=== PATIENT | male | born 1965 | race Caucasian/White ===

== ENCOUNTER → 2018-11-23 | Outpatient (CLI) | payer MEDICARE, OTHER ==
[~2018-11-23] MED LIST: 1ST TIER UNILE1 EAC1 MC; ADVOCATE SYRIN1 EAC1 MC; AMARYL2 MG PO; AUGMENTIN 875-1 EACH PO; FUROSEMIDE 20 M20 M1; GLUCOMETER; HUMALOG100 UNIT/2; HUMULIN N100 UNIT/1 SUBQ; HUMULINR100 SUBQ; LACTULOSE20 GM/30 M PO; LANTUS100 UNIT/M; LIPITOR 10 MG10 M1 PO; LISINOPRIL10 MG PO; LOMOTIL 2.5-0.01 TAB PO; NEURONTIN 300300 M1 PO; TEST STRIPS1 EACH MC; VITAMIN D 5050000 I1 PO; ZANTAC 150MG T150 MG
== END ==
LOC: M.ULTRA 08:12
DX: K74.60 Unspecified cirrhosis of liver (principal); R16.2 Hepatomegaly with splenomegaly, not elsewhere classified; Z86.19 Personal history of other infectious and parasitic diseases

== ENCOUNTER 2018-12-17 11:38 | Emergency (ER) | payer OTHER, MEDICAID ==
[~2018-12-17] VITALS: Ht 188 cm; Wt 142.9 kg
[~2018-12-17 11:38] MED LIST changes: -AMARYL2 MG PO; +AMARYL4 MG PO; -FUROSEMIDE 20 M20 M1; +FUROSEMIDE 40 M40 M1 PO; -NEURONTIN 300300 M1 PO; +NEURONTIN600 MG PO
[2018-12-17] MEDS ORDERED: BENTYL 10 MG CA10 M1 PO (11:48)
[2018-12-17] MEDS ORDERED: FIBER500 MG PO (11:48)
[2018-12-17 12:35] LABS: HEMATOCRIT 38.2 % (42.0-52.0); HEMOGLOBIN 12.7 gm/dL (14.0-18.0); MCH 27.2 pg (26.0-34.0); MCHC 33.2 g/dL (28.0-37.0); MCV 81.9 fL (80.0-100.0); MPV 8.3 fl. (7.2-11.1); NUCLEATED RBCS 0 /100WBC; PLATELET COUNT* 117 thou/uL (150-400); RBC 4.66 mil/uL (4.50-6.00); RDW-CV 15.5 % (10.5-14.5); WBC 9.2 thou/uL (4.0-11.0)
[2018-12-17 12:56] LABS: ABSOLUTE BASOPHILS 0.2 thou/uL (0.0-0.2); ABSOLUTE EOSINOPHILS 0.5 thou/uL (0.0-0.7); ABSOLUTE LYMPHOCYTES 1.3 thou/uL (0.8-5.3); ABSOLUTE MONOCYTES 0.6 thou/uL (0.0-1.2); ABSOLUTE NEUTROPHILS 6.7 thou/uL (1.6-8.1); PLATELET ESTIMATE ADEQUATE
[2018-12-17 13:00] LABS: CALCIUM 8.8 mg/dL (8.5-10.1); CREATININE 1.3 mg/dL (0.6-1.3); POTASSIUM 3.6 mmol/L (3.5-5.1)
[2018-12-17 13:17] LABS: ALBUMIN 3.5 g/dL (3.4-5.0); TOTAL BILIRUBIN 0.5 mg/dL (<0.1-1.0); TOTAL PROTEIN 7.2 g/dL (6.4-8.2)
[2018-12-17] MEDS ORDERED: KEFLEX500 M1 PO (14:37)
[2018-12-17] MEDS ORDERED: ACETAMINOPHEN-1 EAC1 PO (15:08)
[2018-12-17 15:26] VITALS: BP 114/63
--- NOTE | 2018-12-18 15:28 | EKG ---
[place] [address] ELECTROCARDIOGRAM REPORT Name: EMMA BOATENG Room: [facility]#: [id number] Admission: 12/17/18 Attend Phys: Discharge: 12/17/18 Date of : 69 Report #: [id number] THIS REPORT FOR: //name// 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
== END 2018-12-17 15:27 | disposition home or self-care (01) ==
LOC: M.ERS 11:38
PROVIDERS: Physician Assistant
DX: S01.21XA Laceration without foreign body of nose, initial encounter (principal); S01.81XA Laceration without foreign body of other part of head, initial encounter; R51 Headache; M25.562 Pain in left knee; M25.561 Pain in right knee; E11.9 Type 2 diabetes mellitus without complications; K75.9 Inflammatory liver disease, unspecified; E78.00 Pure hypercholesterolemia, unspecified; W18.2XXA Fall in (into) shower or empty bathtub, initial encounter; Y93.89 Activity, other specified; Y92.89 Other specified places as the place of occurrence of the external cause; Y99.8 Other external cause status

== ENCOUNTER 2020-05-21 16:57 | Observation (INO) | payer OTHER, MEDICAID ==
[~2020-05-21] VITALS: Ht 188 cm; Wt 150.6 kg
[~2020-05-21 16:57] MED LIST changes: +ACETAMINOPHEN-1 EAC1 PO; +BENTYL 10 MG CA10 M1 PO; +FIBER500 MG PO; +KEFLEX500 M1 PO
[2020-05-21 17:12] VITALS: BP 123/66
[2020-05-21] MEDS ORDERED: HUMALOG100 UNIT/1 SUBQ (17:15)
[2020-05-21] MEDS ORDERED: LANTUS SUBQ (17:15)
[2020-05-21] MEDS ORDERED: METFORMIN HCL500 M3 PO (17:15)
[2020-05-21] MEDS ORDERED: OMEPRAZOLE40 MG PO (17:18)
[2020-05-21] MEDS ORDERED: SINGULAIR 10 MG10 M1 PO (17:19)
[2020-05-21] MEDS ORDERED: FIBER LAX625 MG PO (17:19)
[2020-05-21] MEDS ORDERED: CLARITIN10 M3 PO (17:20)
[2020-05-21] MEDS ORDERED: BUDESONIDE-FO10.2 G1 (17:20)
[2020-05-21] MEDS ORDERED: [UNRECOGNIZED DRUG - OTHER] PO (17:20)
[2020-05-21] MEDS ORDERED: MECLIZINE HCL25 M1 PO (17:21)
[2020-05-21] MEDS ORDERED: FUROSEMIDE 40 M40 MG PO (17:21)
[2020-05-21] MEDS ORDERED: FLEXERIL PO (17:21)
[2020-05-21] MEDS ORDERED: HYDROXYZINE HCL50 MG PO (17:22)
[2020-05-21] MEDS ORDERED: SPIRONOLACTONE25 MG PO (17:22)
[2020-05-21] MEDS ORDERED: NAPROSYN500 MG PO (17:22)
[2020-05-21] MEDS ORDERED: DESYREL150 MG PO (17:22)
[2020-05-21 18:03] LABS: HEMATOCRIT 29.7 % (42.0-52.0); HEMOGLOBIN 9.9 gm/dL (14.0-18.0); MCH 28.4 pg (26.0-34.0); MCHC 33.5 g/dL (28.0-37.0); MCV 84.7 fL (80.0-100.0); NUCLEATED RBCS 0 /100WBC; PLATELET COUNT* 112 thou/uL (150-400); RBC 3.51 mil/uL (4.50-6.00); RDW-CV 15.4 % (10.5-14.5); WBC 5.8 thou/uL (4.0-11.0)
[2020-05-21 18:12] LABS: CALCIUM 8.4 mg/dL (8.5-10.1); CREATININE 1.9 mg/dL (0.6-1.3); POTASSIUM 4.8 mmol/L (3.5-5.1)
[2020-05-21 20:00] VITALS: BP 154/91
[2020-05-21 20:55] LABS: APTT 23.3 Seconds (25.0-31.3); PROTIME 10.8 Seconds (9.20-11.50)
[2020-05-21 20:56] LABS: TOTAL BILIRUBIN 0.4 mg/dL (<0.1-1.0); TOTAL PROTEIN 6.7 g/dL (6.4-8.2)
[2020-05-21 20:57] LABS: ALBUMIN 3.6 g/dL (3.4-5.0)
[2020-05-21 20:59] LABS: ABSOLUTE EOSINOPHILS 0.1 thou/uL (0.0-0.7); ABSOLUTE LYMPHOCYTES 1.2 thou/uL (0.8-5.3); ABSOLUTE MONOCYTES 0.5 thou/uL (0.0-1.2); ABSOLUTE NEUTROPHILS 3.9 thou/uL (1.6-8.1); PLATELET ESTIMATE DECREASED
[2020-05-21 21:04] LABS: ANISOCYTOSIS 1+
[2020-05-21 23:08] VITALS: BP 116/72
[2020-05-22 04:00] VITALS: BP 85/40
--- NOTE | 2020-05-22 04:12 | NUR ---
PT ALERT ORIENTED. ARRIVED TO FLOOR AT 2305. NIHSS SCORED 2. DRIFT IN R LEG. NUMBNESS AND TINGLING IN R ARM AND R LEG. TELEMETRY SHOWS SB 59. ADMISSION COMPLETE BY 0200. RESTING QUIETLY.
[2020-05-22 08:00] VITALS: BP 121/65
[2020-05-22 08:16] LABS: CHOLESTEROL 134 mg/dL (<200); HDL CHOLESTEROL 23 mg/dL (>40); LDL CHOLESTEROL 84 mg/dL (<100); SERUM ASSESSMENT Clear; TC:HDL 5.8 Ratio (Not establshd); TRIGLYCERIDE 135 mg/dL (<150); VLDL 27 mg/dL (<40)
--- NOTE | 2020-05-22 09:05 | EKG ---
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
--- NOTE | 2020-05-22 10:59 | NUR ---
Nutrition: Pt admitted with TIA. Seen for consult "other" and high BMI. Offered pt DM educ and he stated, "No, I know what I'm supposed to eat and what I'm not. I know how to count my carbs." H/o DM, OBE, OSEI, currhosis/hep C. Wt: 332#. BG 200s, alb 3.6. Pt stated he doesn't eat all the CHOs on his tray. Noticed he has Regular diet order, offered CHO control and pt would like that better - RD will order. No other nutrition interventions needed at this time. Mild risk.
[2020-05-22 12:00] VITALS: BP 109/55
--- NOTE | 2020-05-22 13:17 | NUR ---
PER CHART REVIEW AND RN, PT WITH NO CURRENT SWALLOW CONCERNS OR DIFFICULTIES THAT WARRANT A CLINICAL BEDSIDE SWALLOW EVALUATION.
--- NOTE | 2020-05-22 16:09 | 2DMMODE ---
[place] [address] 2 D/M-MODE ECHOCARDIOGRAM Name: EMMA BOATENG Room: [address] M.R.#: [id number] Admission: 05/21/20 Attend Phys: Tommy Strange, Discharge: Date of : 69 Date of Service: 05/22/20 1609 Report #: [id number] THIS REPORT FOR: cc: Jordy Rosario,Arsalan Canales MD [facility] ~ APPROVED REPORT Study performed: 05/22/2020 12:12:08 EXAM: Comprehensive 2D, Doppler, and color-flow Echocardiogram Patient Location: In-Patient BSA: 2.70 HR: 59 bpm BP: 85/40 mmHg Other Information Study Quality: Technically Limited Technically limited study due to body habitus. Indications CVA/TIA Echo Enhancing Agent Indication: Rule out Shunt Agent(s) / Amount(s) Used: Agitated Saline cc 2D Dimensions IVSd: 13.30 (7-11mm) LVOT Diam: 17.19 (18-24mm) LVDd: 42.83 mm PWd: 11.02 (7-11mm) Ascending Ao: 31.36 (22-36mm) LVDs: 31.86 (25-40mm) Aortic Root: 28.51 mm Volumes Left Atrial Volume (Systole) LA ESV Index: 16.70 mL/m2 Aortic Valve AoV Peak Alberto.: 1.18 m/s AO Peak Gr.: 5.55 mmHg LVOT Max P.83 mmHg AO Mean Gr.: 3.37 mmHg LVOT Mean P.49 mmHg LVOT Max V: 0.84 m/[place] [address] 2 D/M-MODE ECHOCARDIOGRAM Name: EMMA BOATENG Room: [address] Francois#: [id number] Admission: 05/21/20 Attend Phys: Tommy Strange, Discharge: Date of : 69 Date of Service: 05/22/20 1609 Report #: [id number] AO V2 VTI: 28.97 cm LVOT Mean V: 0.57 m/s CRISTHIAN (VTI): 1.50 cm2 LVOT V1 VTI: 18.75 cm Mitral Valve E/A Ratio: 1.35 MV Decel. Time: 174.04 ms MV E Max Alberto.: 0.68 m/s MV PHT: 50.47 ms MVA (PHT): 4.36 cm2 TDI E/Lateral E': 3.78 E/Medial E': 6.80 Medial E' Alberto.: 0.10 m/s Lateral E' Alberto.: 0.18 m/s Pulmonary Valve PV Peak Alberto.: 1.00 m/s PV Peak Gr.: 3.98 mmHg Tricuspid Valve RAP Estimate: 5.00 mmHg TR Peak Gr.: 22.95 mmHg RVSP: 27.95 mmHg PA Pressure: 27.95 mmHg Left Ventricle The left ventricle is normal size. Grossly normal LV wall motion. There is normal left ventricular wall thickness. Left ventricular systolic function is normal. LVEF is 60-65%. The left ventricular diastolic function is normal. Right Ventricle The right ventricle is normal size. The right ventricular systolic function is normal. Atria The left atrium size is normal. Interatrial septum not well visualized. Injection of bubbles is not conclusive due to poor image quality. The right atrium size is normal. Aortic Valve The aortic valve is normal in structure. No aortic regurgitation is present. There is no aortic valvular stenosis. Mitral Valve The mitral valve is normal in structure. Trace mitral regurgitation. No evidence of mitral [place] [address] 2 D/M-MODE ECHOCARDIOGRAM Name: EMMA BOATENG Room: [address] M.RYashira#: [id number] Admission: 05/21/20 Attend Phys: Tommy Strange, Discharge: Date of : 69 Date of Service: 05/22/20 1609 Report #: [id number] Tricuspid Valve The tricuspid valve is normal in structure. Trace tricuspid regurgitation. Pulmonic Valve The pulmonary valve is normal in structure. Mild pulmonic regurgitation. Great Vessels The aortic root is normal in size. IVC is not visualized. Pericardium There is no pericardial effusion. <Conclusion> The left ventricle is normal size. There is normal left ventricular wall thickness. Left ventricular systolic function is normal. LVEF is 60-65%. The left ventricular diastolic function is normal. Grossly normal LV wall motion. Interatrial septum not well visualized. Injection of bubbles is not conclusive due to poor image quality. Trace mitral regurgitation. Trace tricuspid regurgitation. Mild pulmonic regurgitation. <ELECTRONICALLY SIGNED> By: Arsalan Tubbs MD, FACC 05/22/20 1609 160 160 Arsalan Tubbs MD, FACC /INF
[2020-05-22 20:54] VITALS: BP 98/41
[2020-05-23] VITALS: BP 128/58
[2020-05-23 02:06] LABS: GLYCOHEMOGLOBIN (HGB A1C) 6.2 % (4.8-5.6)
[2020-05-23 04:00] VITALS: BP 102/59
--- NOTE | 2020-05-23 05:28 | NUR ---
PT IS ABLE TO COMMUNICATE HIS NEEDS TO STAFF EFFECTIVELY. HE HAS DENIED THE NEED FOR PAIN MEDICATION UP TO THIS TIME. PT STILL REPORTS SOME NUMBNESS TO RIGHT SIDE UPPER AND LOWER EXTREMITIES. SPEECH PATHOLOGIST CONSULTED.
--- NOTE | 2020-05-23 05:36 | NUR ---
PT IS ABLE TO COMMUNICATE HIS NEEDS TO STAFF EFFECTIVELY. HE HAS DENIED THE NEED FOR PAIN MEDICATION UP TO THIS TIME. HE STILL REPORTS SOME NUMBNESS IN HIS RIGHT SIDE UPPER AND LOWER EXTREMITIES. PT/OT CONSULTED. NEUROLOGY FOLLOWING.
[2020-05-23 07:40] VITALS: BP 120/73
--- NOTE | 2020-05-23 12:09 | NUR ---
ASSUMED CARE OF PT AT 0730. PT RESTING IN BED. A&0X4, DENIES ANY PAIN OR SHORTNESS OF BREATH AT THIS TIME. PT COMPLAINS OF NUMBESS AND TINGLING TO BILATERAL UPPER EXTREMITIES AND RIGHT LOWER EXTREMITY. NIH CHARTED. TRACING SB ON THE MARKETING FINANCE SPECIALIST. ON RA SAT 94%. NEURO CONSULT IN PLACE. PT GOAL FOR TODAY IS WORK WITH PT AND OT, INCREASE ACTIVITY AND NEURO CONSULT IN PLACE. AM ASSESSMENT CHARTED. MEDICATIONS PER JAN. PT REPOSITIONS SELF WITH REMINDERS. HOURLY ROUNDING OBSERVED. BED IN LOW POSITION. CALL LIGHT WITHIN REACH. WILL CONTINUE PLAN OF CARE.
[2020-05-23 12:21] VITALS: BP 98/48
[2020-05-23 15:56] VITALS: BP 110/61
--- NOTE | 2020-05-23 16:52 | NUR ---
NO ACUTE CHANGES THROUGHOUT SHIFT. REFER TO CHARTING. PT SAT UP IN RECL[facility]ER TODAY FOR LUNCH AND AMBULATED IN THE HALLWAY WITH PHYSICAL THERAPY WITH A WALKER AND GAIT BELT. TOLERATED WELL. MEDICATIONS ADJUSTMENTS MADE PER NEUROLOGY. REFER TO EMAR. CONTINUES TO TRACE SB/SR ON THE PLANNING INTERN. PT CONTINUES TO HAVE NUMBNESS AND TINGLING TO RIGHT SIDE WELL LEFT UPPER EXTREMITY. PT PROGRESSING TOWARDS GOALS. MEDICATIONS PER MAR. PT REPOSITIONS SELF. HOURLY ROUNDING OBSERVED. BED IN LOW POSITION. CALL LIGHT WITHIN REACH. WILL CONTINUE PLAN OF CARE.
[2020-05-23 21:29] VITALS: BP 112/66
[2020-05-24] VITALS: BP 126/79
[2020-05-24 04:00] VITALS: BP 118/64
--- NOTE | 2020-05-24 05:54 | NUR ---
PT IS ABLE TO COMMUNICATE HIS NEEDS TO STAFF EFFECTIVELY. HE HAS DENIED THE NEED FOR PAIN MEDICATION UP TO THIS TIME.
[2020-05-24 08:00] VITALS: BP 104/55
[2020-05-24] MEDS ORDERED: NEURONTIN 400400 M1 PO (08:02)
--- NOTE | 2020-05-24 11:53 | NUR ---
ASSUMED CARE OF PT AT 0730. PT RESTING AT EDGE OF BED WAITING FOR BREAKFAST. A&0X4, DENIES ANY PAIN OR SHORTNESS OF BREATH AT THIS TIME. TRACING SB/SR ON THE JOURNEYMAN SHEET METAL WORKER. PT STATES NUMBNESS AND TINGLING REMAINS THE SAME. ON RA SAT UPPER 90'S. PT UP WITH 1 ASSIST AND WALKER TO BATHROOM. NIH CHARTED. PT GOAL FOR TODAY IS WORK WITH PHYSICAL THERAPY AND DISCHARGE PLANNING TO HOME. AM ASSESSMENT CHARTED. MEDICATIONS PER JAN. PT REPOSITIONS SELF WITH REMINDERS. HOURLY ROUNDING OBSERVED. BED IN LOW POSITION. BED ALARM IN PLACE. FALL PRECAUTIONS IN PLACE. CALL LIGHT WITHIN REACH. WILL CONTINUE PLAN OF CARE.
[2020-05-24 13:13] VITALS: BP 104/55
[2020-05-24] MEDS ORDERED: MYSOLINE50 MG PO (13:45)
--- NOTE | 2020-05-24 15:06 | NUR ---
DISCHARGE ORDERS RECEIVED. DISCHARGE INSTRUCTIONS, CARE NOTES, AND FOLLOW UP APPTS GIVEN TO PT. PT COMMUNICATES UNDERSTANDING OF DISCHARGE TEACHING. IV AND RAIL SWITCHMAN REMOVED. PT DISCHARGED TO HOME WITH HOME HEALTH. ORDERS FAXED TO [facility] AND CALL PLACED TO ANSWERING SERVICE. AWAITING CALL BACK AT THIS TIME FOR CONFIRMATION. PRIMIDONE AND NEURONTIN CALLED IN TO [facility] PER DR ERNST. PT DISCHARGED WITH ALL BELONGINGS AND PAPERWORK VIA WHEELCHAIR WITH NURSING STAFF TO FAMILY OWN PERSONAL VEHICLE.
== END 2020-05-24 15:00 | disposition home health service (06) ==
LOC: M.ERS 16:57 → M.TBA-ER 18:13 → M.2W 18:13
PROVIDERS: Family Medicine; ADMIT Internal Medicine; ATTEND Internal Medicine
DX: R20.0 Anesthesia of skin (principal); R53.1 Weakness; K74.60 Unspecified cirrhosis of liver; B19.20 Unspecified viral hepatitis C without hepatic coma; E11.22 Type 2 diabetes mellitus with diabetic chronic kidney disease; N18.9 Chronic kidney disease, unspecified; D64.9 Anemia, unspecified; G47.33 Obstructive sleep apnea (adult) (pediatric)